=== PATIENT | male | born 1990 | race Caucasian/White ===

== ENCOUNTER 2021-08-26 07:42 | Emergency (ER) | payer SELFPAY ==
[2021-08-26 08:14] LABS: HEMOGLOBIN 16.9 gm/dl (14.0-17.5); RED BLOOD COUNT 6.36 M/UL (4.20-5.50); WHITE BLOOD COUNT 10.5 K/UL (4.5-11.0)
[2021-08-26 08:35] LABS: BUN/CREATININE RATIO 16 (0-10)
== END 2021-08-26 10:33 | disposition home or self-care (01) ==
LOC: ER1 07:42
PROVIDERS: Emergency Medicine
DX: K80.20 Calculus of gallbladder without cholecystitis without obstruction (principal)
CPT/HCPCS: 80053; 83690; 85025; 96374; 96375; 99284; J2270; J2405